=== PATIENT | male | born 1975 | race Hispanic/Latino ===

== ENCOUNTER → 2019-05-03 | Day surgery (SDC) | payer MEDICARE ==
[~2019-05-03] MED LIST: CRESTOR10 MG; GLIMEPIRIDE2 MG PO; PROPOFOL IV EMULSION 10 MG/ML 50 ML VIAL ONE; VASOTEC5 MG PO
[2019-05-03 09:17] VITALS: BP 95/61
== END | disposition home or self-care (01) ==
LOC: OR 05:57
PROVIDERS: ATTEND Internal Medicine Gastroenterology
DX: K59.00 Constipation, unspecified (principal); K92.1 Melena; Z71.3 Dietary counseling and surveillance; E10.9 Type 1 diabetes mellitus without complications; E66.9 Obesity, unspecified; Z68.34 Body mass index [BMI] 34.0-34.9, adult; I10 Essential (primary) hypertension; Z01.810 Encounter for preprocedural cardiovascular examination; K64.8 Other hemorrhoids
CPT/HCPCS: 36415; 45378; 82948; 93005; J2704